=== PATIENT | male | born 1990 | race American Indian/Alaskan Native ===

== ENCOUNTER 2016-10-30 23:20 | Emergency (ER) | payer OTHER ==
[2016-10-31 01:20] VITALS: BMI 33.0
--- NOTE | 2016-10-31 01:36 | ED PDOC ---
Arrival/HPI <CarleneTony - Last Filed: 10/31/16 02:14> <Naresh Tomas - Last Filed: 10/31/16 07:04> - General Chief Complaint: Abdominal Pain Time Seen by Provider: 10/31/16 01:07 - History of Present Illness Narrative History of Present Illness (Text): 10/31/16 01:31 26 year old male with no past medical history presents with pubic pain. Patient reports the pain started suddenly 2 weeks ago. The pain is sharp in quality, non radiating. It comes and goes and it is worse with standing up. He did not try taking any medications for this pain. Patient does not have pain or burning sensation during urination. Patient does not have penile discharges. Patient practices protective sex. He further denies having headache, fever, chills, shortness of breath, chest pain, nausea, vomiting or urinary symptoms. (Naresh Tomas) Past Medical History - Provider Review Nursing Documentation Reviewed: Yes - Infectious Disease Hx of Infectious Diseases: None - Psychiatric Hx Substance Use: No - Anesthesia Hx Anesthesia: No <Naresh Tomas - Last Filed: 10/31/16 07:04> Family/Social History - Physician Review Nursing Documentation Reviewed: Yes Family/Social History: No Known Family HX Smoking Status: Never Smoked Hx Alcohol Use: Yes Hx Substance Use: No <Naresh Tomas - Last Filed: 10/31/16 07:04> Allergies/Home Meds <CarleneTony - Last Filed: 10/31/16 02:14> <Naresh Tomas - Last Filed: 10/31/16 07:04> Allergies/Adverse Reactions: Allergies No Known Allergies Allergy (Verified 10/31/16 01:20) Home Medications: Home Meds Medication Instructions Recorded Confirmed No Known Home Med 10/31/16 10/31/16 Review of Systems - Physician Review All systems were reviewed & negative as marked: Yes - Review of Systems Constitutional: Normal. absent: Fatigue, Weight Change Eyes: Normal ENT: Normal Respiratory: Normal. absent: SOB, Cough, Sputum Cardiovascular: Normal. absent: Chest Pain, Syncope Gastrointestinal: Abdominal Pain (lower abdominal/pubic pain). absent: Constipation, Nausea, Vomiting Genitourinary Male: Normal. absent: Dysuria, Frequency, Hematuria, Urinary Output Changes Musculoskeletal: Normal Skin: Normal. absent: Pruritis, Laceration Neurological: Normal. absent: Headache, Dizziness Endocrine: Normal Hemo/Lymphatic: Normal Psychiatric: Normal <Naresh Tomas - Last Filed: 10/31/16 07:04> Physical Exam Vital Signs Reviewed: Yes Temperature: Afebrile Blood Pressure: Normal Pulse: Regular Respiratory Rate: Normal Appearance: Positive for: Well-Appearing, Non-Toxic, Comfortable Pain Distress: None Mental Status: Positive for: Alert and Oriented X 3 - Systems Exam Head: Present: Atraumatic, Normocephalic Pupils: Present: PERRL Extroacular Muscles: Present: EOMI Conjunctiva: Present: Normal Mouth: Present: Moist Mucous Membranes Neck: Present: Normal Range of Motion Respiratory/Chest: Present: Clear to Auscultation, Good Air Exchange. No: Respiratory Distress, Accessory Muscle Use Cardiovascular: Present: Regular Rate and Rhythm, Normal S1, S2. No: Murmurs Abdomen: Present: Normal Bowel Sounds. No: Tenderness, Distention, Peritoneal Signs Back: Present: Normal Inspection. No: CVA Tenderness Upper Extremity: Present: Normal Inspection. No: Cyanosis, Edema Lower Extremity: Present: Normal Inspection. No: Edema Neurological: Present: GCS=15, CN II-XII Intact, Speech Normal Skin: Present: Warm, Dry, Normal Color. No: Rashes Psychiatric: Present: Alert, Oriented x 3, Normal Insight, Normal Concentration <Narehs Tomas - Last Filed: 10/31/16 07:04> Vital Signs Temp Pulse Resp BP Pulse Ox 10/31/16 06:51 98.3 F 68 17 130/96 H 99 Medical Decision Making - Lab Interpretations I have reviewed the lab results: Yes <Tony Concepcion - Last Filed: 10/31/16 02:14> - Lab Interpretations I have reviewed the lab results: Yes <Naresh Tomas - Last Filed: 10/31/16 07:04> ED Course and Treatment: Impression: Pt seen and evaluated with medical dermatologist. Pt who presents to the ED complaining of intermittent pubic pain x 2 weeks, worsened with movement. Aware and agree with HPI, clinical findings, plan, and management. Plan: -- Labs -- Urinalysis -- IV fluids -- Reassess and disposition (Tony Concepcion) 10/31/16 02:07 -CBC, CMP -Urinalysis -Urine culture -IVF -CT abdomen -Reassess and disposition DDx: Nephrolithiasis, UTI, gastroenteritis Patient's pubic pain improved. Based on history and physical examination, patient's symptoms are likely muscle strain in nature. (Naresh Tomas) - Lab Interpretations Lab Results: 10/31/16 02:00 10/31/16 02:00 Lab Results 10/31/16 02:00: Sodium 140, Potassium 3.9, Chloride 100, Carbon Dioxide 27, Anion Gap 17, BUN 17, Creatinine 1.1, Est GFR ( Amer) > 60, Est GFR (Non- Af Amer) > 60, Random Glucose 87, Calcium 9.8, Total Bilirubin 0.5, AST 43, ALT 50, Alkaline Phosphatase 70, Total Protein 9.2 H, Albumin 4.9 H, Globulin 4.5, Albumin/Globulin Ratio 1.0 L 10/31/16 02:00: Urine Color Yellow, Urine Appearance Clear, Urine pH 6.0, Ur Specific [place] 1.025, Urine Protein Trace H, Urine Glucose (UA) Negative, Urine Ketones Negative, Urine Blood Negative, Urine Nitrate Negative, Urine Bilirubin Negative, Urine Urobilinogen 0.2, Ur Leukocyte Esterase Negative, Urine RBC 0 - 2, Urine WBC 0 - 2, Ur Epithelial Cells 0 - 2 10/31/16 02:00: WBC 6.4, RBC 5.11, Hgb 13.5 L, Hct 41.1 L, MCV 80.4, MCH 26.4, MCHC 32.8, RDW 13.9, Plt Count 296, MPV 10.0, Gran % 45.9 L, Lymph % (Auto) 42.7 H, Brooke % (Auto) 7.3 H, Eos % (Auto) 3.9, Baso % (Auto) 0.2, Gran # 2.96, Lymph # 2.8, Brooke # 0.5, Eos # 0.3, Baso # 0.01 - RAD Interpretation Narrative RAD Interpretations (Text): 10/31/16 06:28 EXAM: CT Abdomen and Pelvis Without Intravenous Contrast CLINICAL HISTORY: 26 years old, male; Pain; Abdominal pain; Other: Pelvic pain; Additional info: Pubic pain, kidney stone TECHNIQUE: Axial computed tomography images of the abdomen and pelvis without intravenous contrast. This CT exam was performed using one or more of the following dose reduction techniques: automated exposure control, adjustment of the mA and/or kV according to patient size, and/ or use of iterative reconstruction technique. Coronal and sagittal reformatted images were created and reviewed. COMPARISON: No relevant prior studies available. FINDINGS: Lower thorax: The bilateral lung bases are clear. ABDOMEN: Liver: There is a decreased attenuation, consistent with fatty infiltration. Moderate hepatic enlargement is also noted, measuring 20 cm in longitudinal dimension. Gallbladder and bile ducts: No acute finding. No calcified stones. No intra- extrahepatic biliary ductal dilation. Pancreas: Limited evaluation secondary to the lack of intravenous contrast. Spleen: No acute findings. Adrenals: No acute findings. Kidneys and ureters: No obstructing stones. No hydronephrosis. PELVIS: Bladder: The bladder is decompressed. Reproductive: No acute findings. Appendix: The appendix is not definitively visualized, however no pericecal inflammatory changes identified to suggest the presence of acute appendicitis. ABDOMEN and PELVIS: Stomach and bowel: Bilateral fat-containing inguinal hernias are present.Small bowel wall thickening but no surrounding inflammation or fluid to confirm an acute enteritis. Peritoneum: No acute findings. Lymph nodes: Limited evaluation without intravenous contrast. Vasculature: No aortic aneurysm. Bones: No acute fracture. IMPRESSION: Mural thickening within multiple loops of small bowel, specifically within the left upper quadrant without surrounding inflammation or fluid to confirm an acute enteritis. Fatty infiltration of an enlarged liver. Bilateral fat-containing inguinal hernias. No obstructive uropathy. (Naresh Tomas) Radiology Orders: 10/31/16 04:22 ABDOMEN & PELVIS [ABD & PELVIS W/O PO OR IV CONT] [CT] Stat - Medication Orders Current Medication Orders: Sodium Chloride (Sodium Chloride 0.9%) 1,000 mls @ 100 mls/hr IV .Q10H LEE Last Admin: 10/31/16 02:17 Dose: 100 mls/hr - PA / ECHO VASCULAR TECHNOLOGIST / Resident Statement KIRILL has reviewed & agrees with the documentation as recorded. / has examined the patient and agrees with the treatment plan. <Tony Concepcion - Last Filed: 10/31/16 02:14> - PA / ECHO VASCULAR TECHNOLOGIST / Resident Statement KIRILL has reviewed & agrees with the documentation as recorded. KIRILL has examined the patient and agrees with the treatment plan. <Naresh Tomas - Last Filed: 10/31/16 07:04> Disposition/Present on Arrival <Tony Concepcion - Last Filed: 10/31/16 02:14> - Present on Arrival Any Indicators Present on Arrival: No History of DVT/PE: No History of Uncontrolled Diabetes: No Urinary Catheter: No History of Decub. Ulcer: No History Surgical Site Infection Following: None - Disposition Have Diagnosis and Disposition been Completed?: Yes Disposition Time: 06:41 <Naresh Tomas - Last Filed: 10/31/16 07:04> - Disposition Diagnosis: Muscle strain Disposition: HOME/ ROUTINE Patient Problems: Current Active Problems Problem Status Onset Muscle strain Acute Condition: IMPROVED Discharge Instructions (ExitCare): Muscle Strain (ED) Additional Instructions: Goran Aparicio, thank you for letting us take care of you today. Your provider was Dr. Concepcion. You were treated for muscle strain. The emergency medical care you received today was directed at your acute symptoms. If you were prescribed any medication, please fill it and take as directed. It may take several days for your symptoms to resolve. Return to the Emergency Department if your symptoms worsen, do not improve, or if you have any other problems. Please contact your doctor or call one of the physicians/clinics you have been referred to that are listed on the Patient Visit Information form that is included in your discharge packet. Bring any paperwork you were given at discharge with you along with any medications you are taking to your follow up visit. Our treatment cannot replace ongoing medical care by a primary care provider (PCP) outside of the emergency department. Please avoid strenuous activity such as heavy lifting and also to follow up outpatient clinic at [phone] or PMD of choice. Thank you for allowing the [facility] team to be part of your care today.
[2016-10-31] MEDS ORDERED: Sodium Chloride 0.9% 1,000 ML IV SCH (01:45)
[2016-10-31 02:17] LABS: BASO # 0.01 K/mm3 (0.0-2.0); BASO % 0.2 % (0.0-3.0); EOS # 0.3 (0.0-0.7); EOS % 3.9 % (1.5-5.0); GRAN # 2.96 (1.4-6.5); GRAN % 45.9 % (50.0-68.0); HEMOGLOBIN 13.5 gm/dL (14.0-18.0); LYMPH # 2.8 (1.2-3.4); LYMPH % 42.7 % (22.0-35.0); MEAN CELL VOLUME 80.4 fL (80.0-105.0); MEAN CORPUSCULAR HEMOGLOBIN 26.4 pg (25.0-35.0); MEAN CORPUSCULAR HGB CONC 32.8 g/dl (31.0-37.0); MONO # 0.5 (0.1-0.6); MONO % 7.3 % (1.0-6.0); PLATELET COUNT 296 10^3/uL (120.0-450.0); RBC 5.11 10^6/uL (3.5-6.1); RED CELL DISTRIBUTION WIDTH 13.9 % (11.5-14.5); WHITE BLOOD COUNT 6.4 10^3/ul (4.5-11.0)
[2016-10-31 02:21] LABS: URINE BILIRUBIN NEGATIVE (NEGATIVE); URINE BLOOD NEGATIVE (NEGATIVE); URINE GLUCOSE (UA) NEGATIVE (NEGATIVE); URINE LEUKOCYTE ESTERASE NEGATIVE Leu/uL (NEGATIVE); URINE NITRATE NEGATIVE (NEGATIVE); URINE PROTEIN TRACE mg/dL (<30 mg/dL); URINE UROBILINOGEN 0.2 E.U./dL (<1 E.U./dL)
[2016-10-31 02:28] LABS: URINE APPEARANCE CLEAR (CLEAR); URINE COLOR YELLOW (YELLOW)
[2016-10-31 02:30] LABS: URINE EPITHELIAL CELLS 0 - 2 /hpf (0-5); URINE RBC 0 - 2 /hpf (0-2); URINE WBC 0 - 2 /hpf (0-6)
[2016-10-31 02:58] LABS: ALBUMIN 4.9 g/dL (3.0-4.8); ALT/SGPT 50 U/L (7-56); AST/SGOT 43 U/L (15-59); CALCIUM 9.8 mg/dL (8.4-10.5); GFR AFRICAN-AMERICAN > 60; GFR NON-AFRICAN AMERICAN > 60
[2016-10-31 03:00] LABS: BLOOD UREA NITROGEN 17 mg/dL (7-21)
[2016-10-31 06:52] VITALS: BP 130/96; PULSE 68; RESP 17; TEMP 98.3; O2SAT 99
--- NOTE | 2016-10-31 13:50 | CT ---
PROCEDURE: CT abdomen and pelvis dated 10/31/2016 HISTORY: Pain, kidney stone COMPARISON: None. TECHNIQUE: Contiguous axial images of the abdomen and pelvis performed without oral or intravenous contrast material. Additional 2 dimensional sagittal and coronal reformats generated. This CT exam was performed using one or more of the following dose reduction techniques: Automated exposure control, adjustment of the mA and/or kV according to patient size, and/or use of iterative reconstruction technique. Total exam DLP = 739.220 mGy-cm. FINDINGS: LOWER THORAX: Minimal bibasilar atelectasis/ scarring. No focal consolidation effusion or basilar pneumothorax. Tiny hiatal hernia. Heart size within range of normal. No significant pericardial effusion. LIVER: All the liver is enlarged measuring nearly 20 cm in CC dimension. Mild diffuse fatty hepatic infiltration. Some areas of localized fatty sparing about the gallbladder fossa. GALLBLADDER AND BILE DUCTS: Gallbladder is physiologically distended. No evidence of intraluminal gallbladder calculi. PANCREAS: Evaluation of the pancreas is slightly limited due the lack of circulating intravenous contrast as well as oral contrast. No gross pancreatic abnormalities identified. SPLEEN: Unremarkable. No splenomegaly. ADRENALS: Unremarkable. KIDNEYS AND URETERS: The kidneys exhibit symmetric size. No evidence of nephrolithiasis or hydronephrosis. No renal mass or collection BLADDER: Urinary bladder is incompletely distended which may account for thick-walled appearance. Muscular hypertrophy may contribute. Cystitis should be excluded with clinical correlation and urinalysis. REPRODUCTIVE: Prostate and seminal vesicles appear unremarkable. APPENDIX: Appendix is not seen with certainty however no obvious inflammatory changes right lower quadrant of the abdomen to suggest acute appendicitis. . BOWEL: Evaluation of the bowel is limited due to the lack of oral contrast material. The stomach is incompletely distended which may account for thick-walled appearance gastritis not excluded. No evidence of acute mechanical bowel obstruction however there appears to be at a few loops of small bowel that exhibit fecalized content. There appears to be some mild submucosal fat deposition on within the cecum and proximal ascending colon. Rule out sequela of mild chronic inflammatory process. PERITONEUM: No fluid collection. No free air. Tiny fat containing umbilical hernia. Moderate-sized bilateral fat containing inguinal hernias. LYMPH NODES: Unremarkable. No enlarged lymph nodes. VASCULATURE: Unremarkable. No aortic aneurysm. BONES: The visualized lower thoracic and lumbar spine segments are intact. No evidence of acute compression fractures no retropulsed fragments. . OTHER FINDINGS: None. IMPRESSION: Hepatomegaly with mild fatty hepatic infiltration. . There appears to be mild submucosal fat deposition within the cecum and proximal ascending colon; rule out sequela of chronic inflammation. There also appears to be at a few loops of small bowel that exhibit fecalized content possibly due to stasis. Appendix is not seen with any certainty however no obvious inflammatory changes to suggest acute appendicitis.
== END 2016-10-31 07:10 | disposition home or self-care (01) ==
LOC: ED 23:20
DX: S39.011A Strain of muscle, fascia and tendon of abdomen, initial encounter (principal); X58.XXXA Exposure to other specified factors, initial encounter; Y92.9 Unspecified place or not applicable
CPT/HCPCS: 74176; 80053; 81001; 85025; 87086; 99283; J7040

== ENCOUNTER 2017-10-03 18:10 | Emergency (ER) | payer SELFPAY ==
[2017-10-03 18:13] VITALS: BMI 31.7
[2017-10-03 18:14] VITALS: RESP 18
--- NOTE | 2017-10-03 18:29 | ED PDOC ---
Arrival/HPI - General Chief Complaint: Groin Pain Time Seen by Provider: 10/03/17 18:16 Historian: Patient - History of Present Illness Narrative History of Present Illness (Text): 10/03/17 18:21 27yo male with no pmhx who present with complaint of left sided groin swelling/ pain x months. Notes pain is intermittent. States he has been busy with work, but decided to come in to ED today for evaluation. States the swelling/bulging is usually with lifting, coughing or sneezing. He denies any current swelling or pain to the area, states it was swollen and painful few days ago. He denies nausea, vomiting, diarrhea, fever, chills, nausea, back pain, abdominal pain, any other complaint. Past Medical History - Provider Review Nursing Documentation Reviewed: Yes - Infectious Disease Hx of Infectious Diseases: None - Psychiatric Hx Substance Use: No - Anesthesia Hx Anesthesia: No Family/Social History - Physician Review Nursing Documentation Reviewed: Yes Family/Social History: Unknown Family HX Smoking Status: Never Smoked Hx Alcohol Use: Yes Hx Substance Use: No Allergies/Home Meds Allergies/Adverse Reactions: Allergies No Known Allergies Allergy (Verified 10/31/16 01:20) Home Medications: Home Meds Medication Instructions Recorded Confirmed No Known Home Med 10/31/16 10/03/17 Review of Systems - Physician Review All systems were reviewed & negative as marked: Yes - Review of Systems Constitutional: Normal Eyes: Normal ENT: Normal Respiratory: Normal Cardiovascular: Normal Gastrointestinal: Normal Genitourinary Male: Other (LEft sided groin pain). absent: Dysuria, Frequency, Hematuria Musculoskeletal: Normal Skin: Normal Neurological: Normal Endocrine: Normal Hemo/Lymphatic: Normal Psychiatric: Normal Physical Exam Vital Signs Reviewed: Yes Vital Signs Temp Pulse Resp BP Pulse Ox 10/03/17 18:54 98.3 F 89 18 142/90 99 10/03/17 18:14 98.4 F 97 H 18 144/95 H 97 Temperature: Afebrile Blood Pressure: Normal Pulse: Regular Respiratory Rate: Normal Appearance: Positive for: Well-Appearing, Non-Toxic, Comfortable Pain Distress: None Mental Status: Positive for: Alert and Oriented X 3 - Systems Exam Head: Present: Atraumatic, Normocephalic Pupils: Present: PERRL Extroacular Muscles: Present: EOMI Conjunctiva: Present: Normal Mouth: Present: Moist Mucous Membranes Neck: Present: Normal Range of Motion Respiratory/Chest: Present: Clear to Auscultation, Good Air Exchange. No: Respiratory Distress, Accessory Muscle Use Cardiovascular: Present: Regular Rate and Rhythm, Normal S1, S2. No: Murmurs Abdomen: Present: Other (Soft). No: Tenderness, Distention, Peritoneal Signs, Rebound, Guarding, McBurney's Point Tender, Rovsing's Sign Present, Hernias Back: Present: Normal Inspection Upper Extremity: Present: Normal Inspection. No: Cyanosis, Edema Lower Extremity: Present: Normal Inspection. No: Edema Neurological: Present: GCS=15, CN II-XII Intact, Speech Normal Skin: Present: Warm, Dry, Normal Color. No: Rashes Psychiatric: Present: Alert, Oriented x 3, Normal Insight, Normal Concentration Medical Decision Making ED Course and Treatment: 10/03/17 20:16 PT PE was benign. No bulging. No tenderness. No any finding. He likely have inguinal hernia that bulges with pressure. He was advised to avoid lifting heavy objects. Referred to a surgeon for outpt evaluation. Disposition/Present on Arrival - Present on Arrival Any Indicators Present on Arrival: No History of DVT/PE: No History of Uncontrolled Diabetes: No Urinary Catheter: No History of Decub. Ulcer: No History Surgical Site Infection Following: None - Disposition Have Diagnosis and Disposition been Completed?: Yes Diagnosis: Groin pain Disposition: HOME/ ROUTINE Disposition Time: 18:30 Patient Plan: Discharge Condition: STABLE Discharge Instructions (ExitCare): Acute Abdomen (Belly Pain), Adult (DC) Additional Instructions: Follow up with your Doctor/Surgeon Return to ED for any new or worsening symptoms Referrals: Dominic Walker MD [Medical Doctor] - Follow up with primary [facility] [Outside] - Follow up with primary Forms: [employer] (Tajik)
[2017-10-03 18:57] VITALS: BP 142/90; PULSE 89; TEMP 98.3; O2SAT 99
== END 2017-10-03 18:54 | disposition home or self-care (01) ==
LOC: ED 18:10
DX: R10.32 Left lower quadrant pain (principal)

== ENCOUNTER 2018-01-01 14:16 | Emergency (ER) | payer OTHER ==
[2018-01-01 14:16] VITALS: BMI 31.7
[2018-01-01 15:01] VITALS: O2SAT 98
--- NOTE | 2018-01-01 15:44 | ED PDOC ---
Arrival/HPI - General Chief Complaint: Male Genitourinary Time Seen by Provider: 01/01/18 15:08 Historian: Patient - History of Present Illness Narrative History of Present Illness (Text): 01/01/18 15:40 27-year-old male presents today with a 2 day history of right sided groin/ scrotal pain and swelling. pt denies trauma or injury but states the next morning after having sex he developed pain and swelling to the right side of scrotum. pt denies urinary symptoms. denies n/v/d/c/. no fever/chills. pt denies dizziness or weakness. pt states he has hx of recent bilateral inguinal hernia repair. pt denies pain at present time. denies penile discharge. denies back pain. no other complaints. Past Medical History - Provider Review Nursing Documentation Reviewed: Yes - Travel History Have you recently traveled outside [place] w/in the past 3 mons?: No - Infectious Disease Hx of Infectious Diseases: None - Musculoskeletal/Rheumatological Hx Musculoskeletal Disorders: Yes Other/Comment: HX: BILATERAL INGUINAL HERNIA - Psychiatric Hx Substance Use: No - Surgical History Other/Comment: laparoscopy inguinal hernia removed 11/2017 - Anesthesia Hx Anesthesia: Yes Hx Anesthesia Reactions: No Hx Malignant Hyperthermia: No Family/Social History - Physician Review Nursing Documentation Reviewed: Yes Family/Social History: Unknown Family HX Smoking Status: Never Smoked Hx Alcohol Use: Yes Hx Substance Use: No Allergies/Home Meds Allergies/Adverse Reactions: Allergies No Known Allergies Allergy (Verified 01/01/18 15:01) Home Medications: Home Meds Medication Instructions Recorded Confirmed No Known Home Med 10/31/16 01/01/18 Review of Systems - Review of Systems Respiratory: absent: SOB, Cough Cardiovascular: absent: Chest Pain, Palpitations Gastrointestinal: absent: Abdominal Pain, Constipation, Diarrhea, Nausea, Vomiting Genitourinary Male: Other (+ right sided scrotal swelling/mass). absent: Dysuria, Frequency, Hematuria, Urinary Output Changes Musculoskeletal: absent: Arthralgias, Back Pain, Neck Pain Skin: absent: Rash, Pruritis Neurological: absent: Headache, Dizziness Psychiatric: absent: Anxiety, Depression Physical Exam Vital Signs Reviewed: Yes Vital Signs Temp Pulse Resp BP Pulse Ox 01/01/18 21:00 97.7 F 79 16 128/81 98 01/01/18 18:47 78 18 135/65 98 01/01/18 15:12 99.0 F 86 18 139/53 L 98 01/01/18 14:56 99 F 86 19 139/53 L 98 Temperature: Afebrile Blood Pressure: Normal Pulse: Regular Respiratory Rate: Normal Appearance: Positive for: Well-Appearing, Non-Toxic, Comfortable Pain Distress: None Mental Status: Positive for: Alert and Oriented X 3 - Systems Exam Head: Present: Atraumatic Mouth: Present: Moist Mucous Membranes Neck: Present: Normal Range of Motion Respiratory/Chest: Present: Clear to Auscultation, Good Air Exchange. No: Respiratory Distress, Accessory Muscle Use Cardiovascular: Present: Regular Rate and Rhythm, Normal S1, S2. No: Murmurs Abdomen: Present: Normal Bowel Sounds. No: Tenderness, Distention, Peritoneal Signs, Rebound, Guarding Genitourinary Male: Present: Normal External Genitalia, Other (there is a area of swelling noted to the right inguinal region, non tender, no erythema; no edema, no ecchymosis; chaparoned by dr. huizar). No: Penile Discharge, Testicle Tenderness, Penile Swelling, Testicle Swelling Upper Extremity: Present: Normal ROM Lower Extremity: Present: Normal ROM Neurological: Present: GCS=15, Speech Normal Skin: Present: Warm, Dry, Normal Color. No: Rashes Psychiatric: Present: Alert, Oriented x 3 Medical Decision Making ED Course and Treatment: 01/01/18 15:47 27yr old male with right scrotal swelling/mass; hx of hernia repair. duplex testicle; FINDINGS: RIGHT TESTICLE: Measures 4.1 1 x 2.52 x 3.01 cm. Normal echotexture and flow. RIGHT EPIDIDYMIS: Epididymal head measures 1.74 x 0.81 x 0.91 cm. Grossly unremarkable appearance with normal flow. LEFT TESTICLE: Measures 4.4 0 x 2.20 x 8 2.59 cm. Normal echotexture and flow. LEFT EPIDIDYMIS: Epididymal head measures 1.48 x 0.88 x 0.86 cm. There is a small 4 mm cyst in the epididymal head HYDROCELE: There is a large septated hydrocele on the right VARICOCELE: None. OTHER FINDINGS: None. IMPRESSION: No evidence of torsion. Large septated hydrocele on the right cbc: wnl cmp: wnl Ua; wnl ct abd/pelvis:FINDINGS: Lung bases: Unremarkable. No mass. No consolidation. ABDOMEN: Liver: There is a diffuse moderate decrease in hepatic parenchymal density, consistent with moderate fatty infiltration. Gallbladder and bile ducts: Unremarkable. No calcified stones. No ductal dilation. No significant wall thickening. Pancreas: Unremarkable. No mass. No ductal dilation. Spleen: Unremarkable. No splenomegaly. Adrenals: Unremarkable. No mass. Kidneys and ureters: The kidneys are normal. No hydronephrosis. Stomach and bowel: Bowel loops appear within normal limits, no signs of wall thickening, mucosal edema, or bowel distention. PELVIS: Appendix: The appendix is normal. Bladder: Unremarkable. No mass. Reproductive: Unremarkable as visualized. ABDOMEN and PELVIS: Intraperitoneal space: Unremarkable. No free air. No significant fluid collection. Bones/joints: The spine, sacroiliac joints, and hip joints are normal. No acute fracture. No dislocation. Soft tissues: The cystic structure associated with the right inguinal canal distally near the scrotal sac. This is partially visualized the density of 1.7 Hounsfield units, and a size of 4.2 x 5.6 cm in diameter. Vasculature: The aorta and IVC appear within normal limits. No abdominal aortic aneurysm. Lymph nodes: Small reactive nodes in the inguinal region right more than left. IMPRESSION: Fluid collection or cystic lesion of the right inguinal canal distally near the right hemiscrotum. Remaining scrotal contents included in the [id number]. Presence of a small focal area of abscess in this area cannot be excluded. Consider correlation with testicular sonogram. No evidence for bowel herniation, bowel obstruction, colitis, appendicitis or diverticulitis. 01/01/18 19:51 pt was seen and evaluated by registered nurse surgical services dr. Mendoza; who discussed case with dr. Walker; they believe it is most likely a post surgical fluid collection. pt without signs of infection, without leukocytosis, less likely abscess. pt can f/u in the office, I discussed results in depth with patient and stressed the importance of follow- up with the surgeon within the next 2 days. I advised immediate return if symptoms worsen persist or if new concerning symptoms develop: High fevers, increasing pain, increasing redness, increasing swelling or if any other concerning symptoms develop Patient verbalizes understanding of discharge instructions and need for immediate followup. all aspects of this case were discussed the attending of record. impression; hydrocele, fluid collection groin increase fluids follow up with the surgeon within the next 2 days. return immediately if symptoms worsen,persist or if new symptoms develop; high fevers, pain, redness, increasing swelling or if any other concerning symptoms develop. - Lab Interpretations Lab Results: 01/01/18 15:30 01/01/18 15:30 Lab Results 01/01/18 15:30: WBC 4.9 D, RBC 5.22, Hgb 13.3 L, Hct 41.7 L, MCV 79.9 L, MCH 25.5, MCHC 31.9, RDW 14.1, Plt Count 307, MPV 9.4, Gran % 46.7 L, Lymph % (Auto ) 43.7 H, [place] % (Auto) 4.9, Eos % (Auto) 4.5, Baso % (Auto) 0.2, Gran # 2.31, Lymph # (Auto) 2.2, [place] # (Auto) 0.2, Eos # (Auto) 0.2, Baso # (Auto) 0.01 01/01/18 15:30: Sodium 139, Potassium 4.1, Chloride 103, Carbon Dioxide 26, Anion Gap 15, BUN 12, Creatinine 0.9, Est GFR ( Amer) > 60, Est GFR (Non- Af Amer) > 60, Random Glucose 92, Calcium 9.5, Total Bilirubin 0.4, AST 43, ALT 45, Alkaline Phosphatase 93, Total Protein 9.0 H, Albumin 4.6, Globulin 4.4, Albumin/Globulin Ratio 1.0 L 01/01/18 15:30: Urine Color Yellow, Urine Appearance Clear, Urine pH 6.0, Ur Specific [place] 1.025, Urine Protein Trace H, Urine Glucose (UA) Negative, Urine Ketones Negative, Urine Blood Negative, Urine Nitrate Negative, Urine Bilirubin Negative, Urine Urobilinogen 0.2, Ur Leukocyte Esterase Negative, Urine RBC Negative, Urine WBC 5 - 10, Ur Epithelial Cells 3 - 4, Urine Bacteria Few - RAD Interpretation Radiology Orders: 01/01/18 15:08 TESTES DUPLEX COMPLETE [US] Stat 01/01/18 15:43 ABD & PELVIS PO CONTRAST ONLY [CT] Stat - Medication Orders Current Medication Orders: Discontinued Medications Ketorolac Tromethamine (Toradol) 60 mg IM STAT STA Stop: 01/01/18 15:09 Last Admin: 01/01/18 15:35 Dose: 60 mg MAR Pain Assessment Document 01/01/18 15:35 [facility] (Rec: 01/01/18 15:36 [facility] [id number]) Pain Reassessment Is this a pain reassessment? No Sleep Is patient sleeping during reassessment? No Presence of Pain Presence of Pain Yes Pain Scale Used Pain Scale Used Numeric IM Administration Charges Document 01/01/18 15:35 [facility] (Rec: 01/01/18 15:36 [facility] [id number]) Charges for Administration # of IM Administrations 1 Disposition/Present on Arrival - Present on Arrival Any Indicators Present on Arrival: No History of DVT/PE: No History of Uncontrolled Diabetes: No Urinary Catheter: No History of Decub. Ulcer: No History Surgical Site Infection Following: None - Disposition Have Diagnosis and Disposition been Completed?: Yes Diagnosis: Hydrocele, Seroma Disposition: HOME/ ROUTINE Disposition Time: 17:00 Patient Plan: Discharge Condition: GOOD Discharge Instructions (ExitCare): Hydrocele Additional Instructions: increase fluids follow up with the surgeon within the next 2 days. return immediately if symptoms worsen,persist or if new symptoms develop; high fevers, pain, redness, increasing swelling or if any other concerning symptoms develop. Referrals: Dominic Walker MD [Medical Doctor] - Follow up with primary Jillian Santos MD [Medical Doctor] - Follow up with primary [facility] [Outside] - Follow up with primary Forms: [facility] (Maltese), WORK NOTE
[2018-01-01 15:48] LABS: BASO # 0.01 K/mm3 (0.0-2.0); BASO % 0.2 % (0.0-3.0); EOS # 0.2 (0.0-0.7); EOS % 4.5 % (1.5-5.0); GRAN # 2.31 (1.4-6.5); GRAN % 46.7 % (50.0-68.0); HEMOGLOBIN 13.3 g/dL (14.0-18.0); LYMPH # 2.2 (1.2-3.4); LYMPH % 43.7 % (22.0-35.0); MEAN CELL VOLUME 79.9 fl (80.0-105.0); MEAN CORPUSCULAR HEMOGLOBIN 25.5 pg (25.0-35.0); MEAN CORPUSCULAR HGB CONC 31.9 g/dl (31.0-37.0); MEAN PLATELET VOLUME 9.4 fl (7.0-11.0); MONO # 0.2 (0.1-0.6); MONO % 4.9 % (1.0-6.0); RBC 5.22 10^6/uL (3.5-6.1); RED CELL DISTRIBUTION WIDTH 14.1 % (11.5-14.5); WHITE BLOOD COUNT 4.9 10^3/ul (4.5-11.0)
[2018-01-01 15:57] LABS: ALBUMIN 4.6 g/dL (3.0-4.8); ALT/SGPT 45 U/L (7-56); AST/SGOT 43 U/L (17-59); BLOOD UREA NITROGEN 12 mg/dL (7-21); CALCIUM 9.5 mg/dL (8.4-10.5); GFR NON-AFRICAN AMERICAN > 60
[2018-01-01] MEDS ORDERED: Iohexol 240 (50 ml) ONE (16:24)
--- NOTE | 2018-01-01 16:49 | US ---
Date of service: 01/01/2018 HISTORY: testicular pain TECHNIQUE: Realtime sonography through the scrotum with color and doppler flow. COMPARISON: None Available. FINDINGS: RIGHT TESTICLE: Measures 4.1 1 x 2.52 x 3.01 cm. Normal echotexture and flow. RIGHT EPIDIDYMIS: Epididymal head measures 1.74 x 0.81 x 0.91 cm. Grossly unremarkable appearance with normal flow. LEFT TESTICLE: Measures 4.4 0 x 2.20 x 8 2.59 cm. Normal echotexture and flow. LEFT EPIDIDYMIS: Epididymal head measures 1.48 x 0.88 x 0.86 cm. There is a small 4 mm cyst in the epididymal head HYDROCELE: There is a large septated hydrocele on the right VARICOCELE: None. OTHER FINDINGS: None. IMPRESSION: No evidence of torsion. Large septated hydrocele on the right
[2018-01-01 17:12] LABS: URINE BILIRUBIN NEGATIVE (NEGATIVE); URINE BLOOD NEGATIVE (NEGATIVE); URINE GLUCOSE (UA) NEGATIVE (NEGATIVE); URINE LEUKOCYTE ESTERASE NEGATIVE Leu/uL (NEGATIVE); URINE PROTEIN TRACE mg/dL (<30 mg/dL); URINE UROBILINOGEN 0.2 E.U./dL (<1 E.U./dL)
[2018-01-01 17:13] LABS: URINE APPEARANCE CLEAR (CLEAR); URINE COLOR YELLOW (YELLOW)
[2018-01-01 17:56] LABS: URINE BACTERIA FEW (NEG); URINE RBC NEGATIVE /hpf (0-2)
--- NOTE | 2018-01-01 20:28 | CP.PCM.CON ---
<Varsha Mendoza - Last Filed: 01/01/18 20:47> History of Present Illness - History of Present Illness History of Present Illness: General Surgery Consult for Dr. Walker CC: Right scrotal swelling HPI: 27 year old male with PSH of robotic assisted laparoscopic bilateral inguinal hernia repair with mesh approximately 5 weeks ago, complaining of right scrotal swelling that began two days ago. Patient states that after the operation he did not note any swelling or pain in the area. Patient reports that he noticed tis swelling in the morning after having had sexual intercourse the previous evening, for the first time since the operation. The patient states that the swelling is constant, painless and has not fluctuated in size. Patient denies fevers, chills, abdominal pain, nausea, vomiting, diarrhea, constipation, dysuria, back pain and leg pain. Patient states he is passing gas and having regular bowel function. PMH: denies PSH: robotic assisted laparoscopic bilateral inguinal hernia repair Meds: alleve OTC for pain Allergies: shellfish FamHx: non-contributory Social Hx: occasional tobacco, marijuana, alcohol use; lives alone; works in [employer] Review of Systems - Review of Systems All systems: reviewed and no additional remarkable complaints except (as per HPI ) - Constitutional Constitutional: absent: Chills, Excessive Sweating, Fever, Weight Gain, Weight Loss - Cardiovascular Cardiovascular: absent: Chest Pain - Respiratory Respiratory: absent: Cough, Dyspnea on Exertion - Gastrointestinal Gastrointestinal: absent: Abdominal Pain, Change in Bowel Habits, Change in Stool Character, Constipation, Diarrhea, Hematochezia, Loose Stools, Nausea, Vomiting - Genitourinary Genitourinary: absent: Change in Urinary Stream, Difficulty Urinating, Dysuria, Hematuria, Pyuria, Urinary Frequency, Urinary Urgency - Musculoskeletal Musculoskeletal: absent: Back Pain - Integumentary Integumentary: Swelling. absent: Bleeding Lesions, Change in Pigmentation, Changing Lesions Past Patient History - Infectious Disease Hx of Infectious Diseases: None - Past Medical History & Family History Past Medical History?: Yes Past Family History: Reviewed and not pertinent - Past Social History Smoking Status: Current Some Days Smoker (2-3x/yr) Alcohol: Occasional Drugs: Cannabis (occasionally) Home Situation {Lives}: Alone - MUSCULOSKELETAL/RHEUMATOLOGICAL Hx Musculoskeletal Disorders: Yes Other/Comment: HX: BILATERAL INGUINAL HERNIA - PSYCHIATRIC Hx Substance Use: No - SURGICAL HISTORY Hx Surgeries: Yes Other/Comment: BL laparoscopic inguinal hernia repair with mesh 11/2017 - ANESTHESIA Hx Anesthesia: Yes Hx Anesthesia Reactions: No Hx Malignant Hyperthermia: No Meds Allergies/Adverse Reactions: Allergies Allergy/AdvReac Type Severity Reaction Status Date / Time No Known Allergies Allergy Verified 01/01/18 15:01 Physical Exam - Constitutional Appears: Well, Non-toxic, No Acute Distress - Head Exam Head Exam: ATRAUMATIC, NORMAL INSPECTION, NORMOCEPHALIC - Eye Exam Eye Exam: EOMI, Normal appearance. absent: Scleral icterus - ENT Exam ENT Exam: Mucous Membranes Moist, Normal Oropharynx - Respiratory Exam Respiratory Exam: NORMAL BREATHING PATTERN. absent: Accessory Muscle Use, Respiratory Distress - Cardiovascular Exam Cardiovascular Exam: RRR - GI/Abdominal Exam GI & Abdominal Exam: Soft. absent: Distended, Firm, Guarding, Hernia, Rebound, Rigid, Tenderness Additional comments: laparoscopic incisions well healed - Exam Exam: Scrotal Swelling (right scrotum with palpable, well defined, firm mass extending from proximal scrotum to 3-4cm proximal to the testicle. Did not communicate with the inguinal canal). absent: Testicular Tenderness External exam: Swelling. absent: Erythema, Lacerations, Lesions Additional comments: BL testicles normal size, no tenderness, no masses No palpable hernia BL - Extremities Exam Extremities exam: Negative for: calf tenderness, joint swelling, pedal edema, tenderness - Neurological Exam Neurological exam: Alert, Oriented x3 - Psychiatric Exam Psychiatric exam: Normal Affect, Normal Mood - Skin Skin Exam: Dry, Intact, Normal Color, Warm Results - Vital Signs Recent Vital Signs: Last Vital Signs Temp 99.0 F 01/01/18 15:12 Pulse 78 01/01/18 18:47 Resp 18 01/01/18 18:47 BP 135/65 01/01/18 18:47 Pulse Ox 98 01/01/18 18:47 - Labs Result Diagrams: 01/01/18 15:30 01/01/18 15:30 Labs: Laboratory Results - last 24 hr 01/01/18 01/01/18 01/01/18 15:30 15:30 15:30 WBC 4.9 D RBC 5.22 Hgb 13.3 L Hct 41.7 L MCV 79.9 L MCH 25.5 MCHC 31.9 RDW 14.1 Plt Count 307 MPV 9.4 Gran % 46.7 L Lymph % (Auto) 43.7 H [place] % (Auto) 4.9 Eos % (Auto) 4.5 Baso % (Auto) 0.2 Gran # 2.31 Lymph # (Auto) 2.2 [place] # (Auto) 0.2 Eos # (Auto) 0.2 Baso # (Auto) 0.01 Sodium 139 Potassium 4.1 Chloride 103 Carbon Dioxide 26 Anion Gap 15 BUN 12 Creatinine 0.9 Est GFR ( Amer) > 60 Est GFR (Non-Af Amer) > 60 Random Glucose 92 Calcium 9.5 Total Bilirubin 0.4 AST 43 ALT 45 Alkaline Phosphatase 93 Total Protein 9.0 H Albumin 4.6 Globulin 4.4 Albumin/Globulin Ratio 1.0 L Urine Color Yellow Urine Appearance Clear Urine pH 6.0 Ur Specific [place] 1.025 Urine Protein Trace H Urine Glucose (UA) Negative Urine Ketones Negative Urine Blood Negative Urine Nitrate Negative Urine Bilirubin Negative Urine Urobilinogen 0.2 Ur Leukocyte Esterase Negative Urine RBC Negative Urine WBC 5 - 10 Ur Epithelial Cells 3 - 4 Urine Bacteria Few - Imaging and Cardiology CT scan - abdomen Status: Image reviewed by me, Report reviewed by me CT scan - pelvis Status: Image reviewed by me, Report reviewed by me Assessment & Plan - Assessment and Plan (Free Text) Assessment: 27 year old male status post bilateral inguinal hernia repair with right scrotal swelling with fluid collection Plan: -No surgical intervention at this time: no sign of infection, hernia recurrence , scrotal tenderness, or compromise of testicular vascular supply. -Follow up with Dr. Walker at clinic as an outpatient this week -If symptoms worsen, return to ED -Avoid aspirin for pain Discussed with Dr. Walker, who agrees with above Varsha Mendoza PGY2 <Dominic Walker - Last Filed: 01/03/18 17:32> Results - Vital Signs Recent Vital Signs: Last Vital Signs Temp 97.7 F 01/01/18 21:00 Pulse 79 01/01/18 21:00 Resp 16 01/01/18 21:00 BP 128/81 01/01/18 21:00 Pulse Ox 98 01/01/18 21:00 - Labs Result Diagrams: 01/01/18 15:30 01/01/18 15:30 Attending/Attestation - Attestation I have fully participated in the care of the patient.: Yes I have reviewed all pertinent clinical information: Yes Notes (Text): Pt with scrotal swelling and discomfort Labs and radiology reviewed Ass: Post op scrotal fluid collection Pt can be DC home with Po antibiotics f.u in office as out pt Plan d.w pt in detail
[2018-01-01 21:02] VITALS: BP 128/81; PULSE 79; RESP 16; TEMP 97.7
--- NOTE | 2018-01-02 10:23 | CT ---
Date of service: 01/01/2018 PROCEDURE: CT Abdomen and Pelvis without intravenous contrast HISTORY: right groin pain/swelling COMPARISON: 10/31/2016 and scrotal ultrasound performed same day TECHNIQUE: Without contrast.. Contrast dose: Radiation dose: Total exam DLP = 864 mGy-cm. This CT exam was performed using one or more of the following dose reduction techniques: Automated exposure control, adjustment of the mA and/or kV according to patient size, and/or use of iterative reconstruction technique. FINDINGS: LOWER THORAX: Unremarkable. LIVER: There is severe fatty infiltration of the liver GALLBLADDER AND BILE DUCTS: Unremarkable. PANCREAS: Unremarkable. No gross lesion or ductal dilatation. SPLEEN: Unremarkable. ADRENALS: Unremarkable. No mass. KIDNEYS AND URETERS: Unremarkable. No hydronephrosis. No solid mass. VASCULATURE: Unremarkable. No aortic aneurysm. BOWEL: Unremarkable. No obstruction. No gross mural thickening. APPENDIX: Unremarkable. Normal appendix. PERITONEUM: Unremarkable. No free fluid. No free air. LYMPH NODES: Unremarkable. No enlarged lymph nodes. BLADDER: Unremarkable. REPRODUCTIVE: There is a large fluid collection in the right inguinal canal and upper scrotum measuring 6 cm in length and 4.3 cm in diameter. This could represent a complex hydrocele or possible abscess. The lesion appears septated on ultrasound BONES: No acute fracture. OTHER FINDINGS: The report concurs with the preliminary [facility] report IMPRESSION: There is a large fluid collection in the right inguinal canal and upper scrotum measuring 6 cm in length and 4.3 cm in diameter. This could represent a complex hydrocele or possible abscess. The lesion appears septated on ultrasound
== END 2018-01-01 21:02 | disposition home or self-care (01) ==
LOC: ED 14:16
DX: N43.3 Hydrocele, unspecified (principal); K91.873 Postprocedural seroma of a digestive system organ or structure following other procedure; Y83.8 Other surgical procedures as the cause of abnormal reaction of the patient, or of later complication, without mention of misadventure at the time of the procedure
CPT/HCPCS: 74176; 80053; 81001; 85025; 87086; 93975; 96372; 99284; J1885; Q9966